=== PATIENT | female | born 1990 | race Caucasian/White ===

== ENCOUNTER → 2016-05-27 | Outpatient (CLI) | payer OTHER ==
[2016-05-27 10:37] LABS: CH 30.8; CHCM 33.5; HCT 46.7 % (34.0-46.0); HDW 2.26; HGB 15.1 gm/dL (11.4-16.0); MCH 29.8 pg (25.0-35.0); MCHC 32.3 g/dL (31.0-37.0); MCV 92.2 fL (80.0-100.0); RBC 5.06 m/uL (3.80-5.40); RDW 12.2 % (11.5-15.5); WBC 6.9 k/uL (3.8-10.6)
[2016-05-27 15:34] LABS: ALT 62 U/L (9-52); AST 36 U/L (14-36); Alkaline Phosphatase 101 U/L (38-126); Anion Gap 11 mmol/L; Blood Urea Nitrogen 14 mg/dL (7-17); C Reactive Protein <5.0 mg/L (<10.0); Calcium 9.5 mg/dL (8.4-10.2); Carbon Dioxide 25 mmol/L (22-30); Chloride 107 mmol/L (98-107); Cholesterol 257 mg/dL (<200); Glucose 93 mg/dL (74-99); HDL Cholesterol 52 mg/dL (40-60); Non-African American GFR(MDRD) >60 (>60 ml/min/1.73 sqM); Potassium 4.5 mmol/L (3.5-5.1); Sodium 143 mmol/L (137-145); Total Bilirubin 0.5 mg/dL (0.2-1.3); Total Protein 7.3 g/dL (6.3-8.2); Triglycerides 154 mg/dL (<150)
[2016-05-28 03:27] LABS: EBV - VCA (IgG) 42.5 U/mL (<18.0); EBV - VCA IgM 30.9 U/mL (<36.0)
[2016-05-28 08:09] LABS: HIV-1/HIV-2 Ab Screen NONREAC (NON REAC)
[2016-05-29 05:47] LABS: Methylmalonic Acid <0.10 umol/L (<0.40)
[2016-06-01 16:22] LABS: Mis test requested (Blood) Narcolepsy
== END | disposition home or self-care (01) ==
LOC: LABWHC1 09:51
PROVIDERS: ATTEND Family Medicine
DX: K75.81 Nonalcoholic steatohepatitis (NASH) (principal); R53.83 Other fatigue
CPT/HCPCS: 36415; 80053; 80061; 81383; 83921; 84439; 84481; 85027; 86038; 86140; 86665; 87389

== ENCOUNTER 2017-05-08 16:09 | Emergency (ER) | payer BC, OTHER ==
[2017-05-08 16:55] LABS: Glucose,Whole Blood 104 mg/dL (75-99)
--- NOTE | 2017-05-08 17:05 | ED ---
General Adult HPI - General Chief complaint: Recheck/Abnormal Lab/Rx Stated complaint: Shaky/Nausea Time Seen by Provider: 05/08/17 16:47 Source: patient Mode of arrival: ambulatory Limitations: no limitations - History of Present Illness Initial comments: This is a 26-year-old female who presents with a chief complaint of "hypoglycemic attacks" which have been occurring for 2 weeks. She describes this as episodes of feeling light-headed and her hands become "shakey." She also states several associated symptoms including fatigue, headache and dizzy. Her serum glucose was 104 today. She denies syncope. She has no known history of diabetes or thyroid disorder. The patient has an appointment scheduled with her primary care provider next week, but felt that she should be evaluated sooner because she is experiencing an increased frequency of theses episodes. - Related Data Home Medications Medication Instructions Recorded Confirmed Omeprazole 20 mg PO DAILY 05/08/17 05/08/17 Qvar Unknown Dose 1 puff INHALATION RT-BID 05/08/17 05/08/17 Allergies Allergy/AdvReac Type Severity Reaction Status Date / Time amoxicillin Allergy Unknown Verified 05/08/17 16:31 Review of Systems ROS Statement: Those systems with pertinent positive or pertinent negative responses have been documented in the HPI. ROS Other: All systems not noted in ROS Statement are negative. Past Medical History Past Medical History: Asthma History of Any Multi-Drug Resistant Organisms: None Reported Past Surgical History: Cholecystectomy Past Psychological History: No Psychological Hx Reported Smoking Status: Never smoker Past Alcohol Use History: None Reported Past Drug Use History: None Reported General Exam Limitations: no limitations General appearance: alert, in no apparent distress Head exam: Present: atraumatic, normocephalic, normal inspection Eye exam: Present: normal appearance, PERRL, EOMI. Absent: scleral icterus, conjunctival injection, periorbital swelling Neck exam: Present: normal inspection, other. Absent: tenderness, meningismus, lymphadenopathy, thyromegaly Respiratory exam: Present: normal lung sounds bilaterally. Absent: respiratory distress, wheezes, rales, rhonchi, stridor Cardiovascular Exam: Present: regular rate, normal rhythm, normal heart sounds. Absent: systolic murmur, diastolic murmur, rubs, gallop, clicks Back exam: Present: normal inspection Neurological exam: Present: alert, oriented X3, CN II-XII intact Psychiatric exam: Present: normal affect, normal mood Skin exam: Present: warm, dry, intact, normal color. Absent: rash Course Vital Signs 05/08/17 16:13 Temperature 97 F L Pulse Rate 87 Respiratory 20 Rate Blood Pressure 144/75 O2 Sat by Pulse 100 Oximetry Medical Decision Making - Medical Decision Making 26-year-old female presented for suspected hypoglycemic events. She states that she gets shaky but has resolved with eating. Patient claims that she is dieting, currently on chemo diet. She states she started spotting 5 weeks ago just prior to her symptoms starting. I did explain that she may be having affects from her dieting. We discussed high-protein, small frequent meals rather than large meals. Patient will follow-up with her primary care physician or park recreation manager for glucose monitoring. - Lab Data Result diagrams: 05/08/17 17:08 05/08/17 17:08 Lab Results 05/08/17 05/08/17 05/08/17 Range/Units 16:26 17:08 17:08 WBC 9.2 (3.8-10.6) k/uL RBC 5.11 (3.80-5.40) m/uL Hgb 15.4 (11.4-16.0) gm/dL Hct 45.9 (34.0-46.0) % MCV 89.9 (80.0-100.0) fL MCH 30.2 (25.0-35.0) pg MCHC 33.5 (31.0-37.0) g/dL RDW 12.1 (11.5-15.5) % Plt Count 347 (150-450) k/uL Neutrophils % 68 % Lymphocytes % 21 % Monocytes % 6 % Eosinophils % 4 % Basophils % 1 % Neutrophils # 6.2 (1.3-7.7) k/uL Lymphocytes # 1.9 (1.0-4.8) k/uL Monocytes # 0.5 (0-1.0) k/uL Eosinophils # 0.3 (0-0.7) k/uL Basophils # 0.1 (0-0.2) k/uL Sodium 144 (137-145) mmol/L Potassium 4.0 (3.5-5.1) mmol/L Chloride 106 (98-107) mmol/L Carbon Dioxide 27 (22-30) mmol/L Anion Gap 11 mmol/L BUN 18 H (7-17) mg/dL Creatinine 0.96 (0.52-1.04) mg/dL Est GFR (MDRD) Af Amer >60 (>60 ml/min/1.73 sqM) Est GFR (MDRD) Non-Af >60 (>60 ml/min/1.73 sqM) Glucose 107 H (74-99) mg/dL POC Glucose (mg/dL) 104 H (75-99) mg/dL POC Glu [employer] Supervisor ID Liliam Crawford Calcium 10.2 (8.4-10.2) mg/dL Total Bilirubin 0.2 (0.2-1.3) mg/dL AST 26 (14-36) U/L ALT 50 (9-52) U/L Alkaline Phosphatase 103 (38-126) U/L Total Protein 7.6 (6.3-8.2) g/dL Albumin 4.5 (3.5-5.0) g/dL TSH 2.160 (0.465-4.680) mIU/L Disposition Clinical Impression: Episode of shaking, Dieting, Labile blood glucose Disposition: HOME SELF-CARE Condition: Stable Instructions: Non-diabetic Hypoglycemia (ED) Additional Instructions: Please return to the Emergency Department if symptoms worsen or any other concerns. Referrals: None,Stated [Primary Care Provider] - 1-2 days Time of Disposition: 18:17
[2017-05-08 17:19] LABS: Basophils # (A) 0.1 k/uL (0-0.2); Basophils % (A) 1 %; Eosinophils # (A) 0.3 k/uL (0-0.7); Eosinophils % (A) 4 %; HCT 45.9 % (34.0-46.0); HGB 15.4 gm/dL (11.4-16.0); Lymphocytes # (A) 1.9 k/uL (1.0-4.8); Lymphocytes % (A) 21 %; MCH 30.2 pg (25.0-35.0); MCHC 33.5 g/dL (31.0-37.0); MCV 89.9 fL (80.0-100.0); Mean Platelet Volume 6.3; Monocytes # (A) 0.5 k/uL (0-1.0); Monocytes % (A) 6 %; Neutrophils # (A) 6.2 k/uL (1.3-7.7); Neutrophils % (A) 68 %; Platelet Count 347 k/uL (150-450); RBC 5.11 m/uL (3.80-5.40); RDW 12.1 % (11.5-15.5); WBC 9.2 k/uL (3.8-10.6)
[2017-05-08 17:29] LABS: ALT 50 U/L (9-52); AST 26 U/L (14-36); Albumin 4.5 g/dL (3.5-5.0); Alkaline Phosphatase 103 U/L (38-126); Anion Gap 11 mmol/L; Blood Urea Nitrogen 18 mg/dL (7-17); Calcium 10.2 mg/dL (8.4-10.2); Carbon Dioxide 27 mmol/L (22-30); Chloride 106 mmol/L (98-107); Glucose 107 mg/dL (74-99); Sodium 144 mmol/L (137-145); Total Bilirubin 0.2 mg/dL (0.2-1.3); Total Protein 7.6 g/dL (6.3-8.2)
[2017-05-08 18:29] VITALS: BP 120/60; PULSE 91; RESP 18; TEMP 98.7
== END 2017-05-08 18:27 | disposition home or self-care (01) ==
LOC: EC 16:09
DX: R25.9 Unspecified abnormal involuntary movements (principal); R63.8 Other symptoms and signs concerning food and fluid intake; R73.09 Other abnormal glucose; R51 Headache; R42 Dizziness and giddiness; R53.83 Other fatigue; J45.909 Unspecified asthma, uncomplicated; Z79.899 Other long term (current) drug therapy; Z88.0 Allergy status to penicillin
CPT/HCPCS: 36415; 80053; 84443; 85025; 99284

== ENCOUNTER 2018-02-24 08:22 | Emergency (ER) | payer OTHER ==
[2018-02-24 08:30] VITALS: RESP 18; TEMP 98.2
[2018-02-24] MEDS ORDERED: ACETAMINOPHEN TAB 500 MG TAB PO STA (09:02)
[2018-02-24] MEDS ORDERED: SODIUM CHLORIDE 0.9% 1,000 ML IV STA (09:02)
[2018-02-24] MEDS ORDERED: KETOROLAC 30 MG/ML 1 ML VIAL IVP STA (09:02)
[2018-02-24] MEDS ORDERED: ONDANSETRON 4 MG/2 ML VIAL IVP STA (09:02)
[2018-02-24] MEDS ORDERED: ORPHENADRINE 30 MG/ML 2 ML VIAL IVP STA (09:02)
--- NOTE | 2018-02-24 09:17 | ED ---
Headache HPI - General Chief Complaint: Headache Stated Complaint: headache Time Seen by Provider: 02/24/18 08:31 Source: RN notes reviewed, old records reviewed Mode of arrival: ambulatory - History of Present Illness Initial Comments: Patient is a 27-year-old female with a history of migraine disorder presents emergency department today with 4 days of headache. She reports not had a headache that she does not past 4 years. She has history of auras with her migraine. She states she's been taking decongestant medication and alternating Motrin Tylenol persist with a headache. She states that it was worse the past 3 days ago she was working nights. - Related Data Home Medications Medication Instructions Recorded Confirmed Omeprazole 20 mg PO DAILY 05/08/17 02/24/18 Aspirin/Acetaminophen/Caffeine 1 tab PO DAILY 02/24/18 02/24/18 [Excedrin Migraine Caplet] Guaifen/Phenyleph/Acetaminophn 2 tab PO DAILY 02/24/18 02/24/18 [Tylenol Sinus Severe Caplet] Ibuprofen [Motrin Ib] 400 mg PO DAILY 02/24/18 02/24/18 Previous Rx's Medication Instructions Recorded Butalbital/Aspirin/Caffeine 1 cap PO Q4H PRN 3 Days #18 cap 02/24/18 [Fiorinal 50-325-40 MG] Allergies Allergy/AdvReac Type Severity Reaction Status Date / Time amoxicillin Allergy Unknown Verified 02/24/18 08:42 Review of Systems ROS Statement: Those systems with pertinent positive or pertinent negative responses have been documented in the HPI. ROS Other: All systems not noted in ROS Statement are negative. Past Medical History Past Medical History: Asthma History of Any Multi-Drug Resistant Organisms: None Reported Past Surgical History: Cholecystectomy Past Psychological History: No Psychological Hx Reported Smoking Status: Never smoker Past Alcohol Use History: None Reported Past Drug Use History: None Reported General Exam General appearance: alert, in no apparent distress Head exam: Present: atraumatic, normocephalic, normal inspection Eye exam: Present: normal appearance, PERRL, EOMI. Absent: scleral icterus, conjunctival injection, periorbital swelling ENT exam: Present: normal exam, mucous membranes moist Neck exam: Present: normal inspection. Absent: tenderness, meningismus, lymphadenopathy Respiratory exam: Present: normal lung sounds bilaterally. Absent: respiratory distress, wheezes, rales, rhonchi, stridor Cardiovascular Exam: Present: regular rate, normal rhythm, normal heart sounds. Absent: systolic murmur, diastolic murmur, rubs, gallop, clicks GI/Abdominal exam: Present: soft, normal bowel sounds. Absent: distended, tenderness, guarding, rebound, rigid Extremities exam: Present: normal inspection, full ROM, normal capillary refill. Absent: tenderness, pedal edema, joint swelling, calf tenderness Back exam: Present: normal inspection Neurological exam: Present: alert, oriented X3, CN II-XII intact Psychiatric exam: Present: normal affect, normal mood Skin exam: Present: warm, dry, intact, normal color. Absent: rash Course Vital Signs 02/24/18 08:24 Temperature 98.2 F Pulse Rate 92 Respiratory 18 Rate Blood Pressure 144/84 Medical Decision Making - Medical Decision Making 27-year-old female presents emergency room 4 days of migraine-like headache. She was given migraine cocktail. Patient reports that her headaches improved, she rates a 4 out of 10. Patient is any peaches no neurological deficits. Otherwise appears well. Discussed inpatient dose of Fioricet. We'll discharge her with close follow-up with primary care physician. Discussed the medication change or worsen she can return to emergency department. Patient agrees to treatment plan at this time. Disposition Clinical Impression: Migraine Disposition: HOME SELF-CARE Condition: Good Instructions: Acute Headache (ED) Additional Instructions: Patient advised to follow-up with primary care physician. Take medication as prescribed. Rest, remain hydrated. Prescriptions: Butalbital/Aspirin/Caffeine [Fiorinal 50-325-40 MG] 1 cap PO Q4H PRN 3 Days #18 cap PRN Reason: Migraine Headache Is patient prescribed a controlled substance at d/c from ED?: No Referrals: Kiera Mtz MD [Primary Care Provider] - 1-2 days Time of Disposition: 11:24
[2018-02-24] MEDS ORDERED: BUTA/APAP/CAF/COD 50-325-40-30 CAP PO STA (11:13)
[2018-02-24 11:48] VITALS: BP 108/53; PULSE 71
== END 2018-02-24 11:51 | disposition home or self-care (01) ==
LOC: EC 08:22
DX: G43.909 Migraine, unspecified, not intractable, without status migrainosus (principal); Z90.49 Acquired absence of other specified parts of digestive tract; Z79.1 Long term (current) use of non-steroidal anti-inflammatories (NSAID); Z79.82 Long term (current) use of aspirin; Z79.899 Other long term (current) drug therapy; Z88.0 Allergy status to penicillin
CPT/HCPCS: 96361; 96374; 96375; 99284

== ENCOUNTER 2018-03-03 21:58 | Emergency (ER) | payer OTHER ==
[2018-03-03 22:11] VITALS: RESP 18; TEMP 98.6
[2018-03-03] MEDS ORDERED: SODIUM CHLORIDE 0.9% 1,000 ML IV STA (22:38)
[2018-03-03 23:20] LABS: Basophils % (A) 1 %; Eosinophils # (A) 0.2 k/uL (0-0.7); Eosinophils % (A) 3 %; HGB 14.3 gm/dL (11.4-16.0); Lymphocytes # (A) 1.1 k/uL (1.0-4.8); Lymphocytes % (A) 21 %; MCH 30.3 pg (25.0-35.0); MCHC 33.3 g/dL (31.0-37.0); Mean Platelet Volume 6.6; Monocytes # (A) 0.6 k/uL (0-1.0); Monocytes % (A) 10 %; Neutrophils # (A) 3.4 k/uL (1.3-7.7); Neutrophils % (A) 63 %; Platelet Count 244 k/uL (150-450); RBC 4.72 m/uL (3.80-5.40); RDW 12.5 % (11.5-15.5); WBC 5.5 k/uL (3.8-10.6)
[2018-03-03 23:33] LABS: ALT 74 U/L (9-52); AST 38 U/L (14-36); Albumin 4.1 g/dL (3.5-5.0); Alkaline Phosphatase 125 U/L (38-126); Anion Gap 7 mmol/L; Blood Urea Nitrogen 9 mg/dL (7-17); Calcium 9.3 mg/dL (8.4-10.2); Carbon Dioxide 27 mmol/L (22-30); Chloride 106 mmol/L (98-107); Glucose 114 mg/dL (74-99); Lipase 77 U/L (23-300); Potassium 3.6 mmol/L (3.5-5.1); Sodium 140 mmol/L (137-145); Total Bilirubin 0.4 mg/dL (0.2-1.3)
[2018-03-03 23:42] LABS: Appearance,Urine Turbid (Clear); Bilirubin,Urine Negative (Negative); Blood,Urine Negative (Negative); Color,Urine Yellow; Glucose,Urine (UA) Negative (Negative); Ketones,Urine 1+ (Negative); Leukocyte Esterase,Urine Moderate (Negative); Mucus,Urine Many /hpf; Nitrite,Urine Negative (Negative); PH, Urine 5.5 (5.0-8.0); Protein,Urine Trace (Negative); RBC,Urine 2 /hpf (0-5); Specific Gravity,Urine 1.022 (1.001-1.035); Squamous Epithelial Cell,Urine 33 /hpf (0-4)
--- NOTE | 2018-03-03 23:51 | ED ---
General Adult HPI - General Chief complaint: Urogenital Stated complaint: Cold, Back pain Source: patient, RN notes reviewed, old records reviewed Mode of arrival: ambulatory Limitations: no limitations - History of Present Illness Initial comments: 27-year-old female patient of present past medical history presents to ED with approximately 5 days of sore throat, nonproductive cough, sinus congestion. In 3 days of dysuria, suprapubic pressure. Patient denies any other symptoms. Patient denies chest pain, shortness of breath, nausea vomiting diarrhea, fever chills, headache, changes in vision. Systemic: Pt denies fatigue, myalgia, fever/chills, rash. Pt denies weakness, night sweats, weight loss. Neuro: Pt denies headache, visual disturbances, syncope or pre-syncope. HEENT: Pt denies ocular discharge or irritation, otalgia, rhinorrhea, pharyngitis or notable lymphadenopathy. Cardiopulmonary: Pt denies chest pain, SOB, heart palpitations, dyspnea on exertion. Abdominal/GI: Pt denies n/v/d. : Pt Denies new onset urinary or bowel incontinence. MSK: Pt denies myalgia, loss of strength or function in extremities. Neuro: Pt denies new onset weakness, paresthesias. - Related Data Home Medications Medication Instructions Recorded Confirmed Omeprazole 20 mg PO DAILY 05/08/17 03/03/18 Cholecalciferol [Vitamin D3] 1,000 unit PO DAILY 03/03/18 03/03/18 Ethel-3 Fatty Acids/Fish Oil [Fish 1 cap PO DAILY 03/03/18 03/03/18 Oil 1,000 mg Softgel] Previous Rx's Medication Instructions Recorded Nitrofurantoin Macrocrystal 100 mg PO Q12HR 5 Days #10 cap 03/04/18 [Macrodantin] Allergies Allergy/AdvReac Type Severity Reaction Status Date / Time amoxicillin Allergy Unknown Verified 03/03/18 22:56 Review of Systems ROS Statement: Those systems with pertinent positive or pertinent negative responses have been documented in the HPI. ROS Other: All systems not noted in ROS Statement are negative. Past Medical History Past Medical History: Asthma History of Any Multi-Drug Resistant Organisms: None Reported Past Surgical History: Cholecystectomy Past Psychological History: No Psychological Hx Reported Smoking Status: Never smoker Past Alcohol Use History: None Reported Past Drug Use History: None Reported General Exam - General Exam Comments Initial Comments: Constitutional: NAD, AOX3, Pt has pleasant affect. HEENT: NC/AT, trachea midline, neck supple, no lymphadenopathy. Posterior pharynx non erythematous, without exudates. External ears appear normal, without discharge. Mucous membranes moist. Eyes PERRLA, EOM intact. There is no scleral icterus. No pallor noted. Cardiopulmonary: RRR, no murmurs, rubs or gallops, no JVD noted. Lungs CTAB in anterior and posterior kahn. No peripheral edema. Abdominal exam: Abdomen soft and non-distended. Abdomen mildly ttp in suprapubic region. Non tender to palpation in all other quadrants. No ecchymosis , no rash. Bowel sounds active in LLQ. No hepatosplenomegaly. Neuro: CN II-XII grossly intact. No nuchal rigidity. MSK: No posterior calf tenderness bilaterally, homans sign negative bilaterally. Posterior tibialis and radial pulse +2 bilaterally. Limitations: no limitations Course Vital Signs 03/03/18 22:06 Temperature 98.6 F Pulse Rate 94 Respiratory 18 Rate Blood Pressure 136/80 O2 Sat by Pulse 99 Oximetry Medical Decision Making - Medical Decision Making [id number] female patient with past medical history of present ED with 5 days of cough, congestion, sore throat and 3 days of dysuria, suprapubic pressure. Patient investigations including CBC, CMP, lactic acid, lipase were not impressive. Patient has a history of nonalcoholic fatty liver, LFTs mildly elevated today. UA displayed UTI. Plain films of the chest and KUB not displaying acute pathology. Patient to be treated for urinary tract infection. Patient to follow primary care physician 1-2 days. Patient return to ED if any new signs or symptoms develop including nausea, diarrhea, chest pain shortness of breath, abdominal pain, fever/chills, or any other new symptoms. Case discussed with Dr. Ricks. - Lab Data Result diagrams: 03/03/18 23:00 03/03/18 23:00 Lab Results 03/03/18 03/03/18 03/03/18 Range/Units 23:00 23:00 23:00 WBC 5.5 (3.8-10.6) k/uL RBC 4.72 (3.80-5.40) m/uL Hgb 14.3 (11.4-16.0) gm/dL Hct 43.0 (34.0-46.0) % MCV 91.0 (80.0-100.0) fL MCH 30.3 (25.0-35.0) pg MCHC 33.3 (31.0-37.0) g/dL RDW 12.5 (11.5-15.5) % Plt Count 244 (150-450) k/uL Neutrophils % 63 % Lymphocytes % 21 % Monocytes % 10 % Eosinophils % 3 % Basophils % 1 % Neutrophils # 3.4 (1.3-7.7) k/uL Lymphocytes # 1.1 (1.0-4.8) k/uL Monocytes # 0.6 (0-1.0) k/uL Eosinophils # 0.2 (0-0.7) k/uL Basophils # 0.0 (0-0.2) k/uL Sodium 140 (137-145) mmol/L Potassium 3.6 (3.5-5.1) mmol/L Chloride 106 (98-107) mmol/L Carbon Dioxide 27 (22-30) mmol/L Anion Gap 7 mmol/L BUN 9 (7-17) mg/dL Creatinine 0.78 (0.52-1.04) mg/dL Est GFR (CKD-EPI)AfAm >90 (>60 ml/min/1.73 sqM) Est GFR (CKD-EPI)NonAf >90 (>60 ml/min/1.73 sqM) Glucose 114 H (74-99) mg/dL Plasma Lactic Acid Rafael (0.7-2.0) mmol/L Calcium 9.3 (8.4-10.2) mg/dL Total Bilirubin 0.4 (0.2-1.3) mg/dL AST 38 H (14-36) U/L ALT 74 H (9-52) U/L Alkaline Phosphatase 125 (38-126) U/L Total Protein 7.0 (6.3-8.2) g/dL Albumin 4.1 (3.5-5.0) g/dL Lipase 77 (23-300) U/L Urine Color Urine Appearance (Clear) Urine pH (5.0-8.0) Ur Specific [place] (1.001-1.035) Urine Protein (Negative) Urine Glucose (UA) (Negative) Urine Ketones (Negative) Urine Blood (Negative) Urine Nitrite (Negative) Urine Bilirubin (Negative) Urine Urobilinogen (<2.0) mg/dL Ur Leukocyte Esterase (Negative) Urine RBC (0-5) /hpf Urine WBC (0-5) /hpf Ur Squamous Epith Cells (0-4) /hpf Urine Mucus (None) /hpf Urine HCG, Qual Not Detected (Not Detectd) 03/03/18 03/03/18 Range/Units 23:00 23:00 WBC (3.8-10.6) k/uL RBC (3.80-5.40) m/uL Hgb (11.4-16.0) gm/dL Hct (34.0-46.0) % MCV (80.0-100.0) fL MCH (25.0-35.0) pg MCHC (31.0-37.0) g/dL RDW (11.5-15.5) % Plt Count (150-450) k/uL Neutrophils % % Lymphocytes % % Monocytes % % Eosinophils % % Basophils % % Neutrophils # (1.3-7.7) k/uL Lymphocytes # (1.0-4.8) k/uL Monocytes # (0-1.0) k/uL Eosinophils # (0-0.7) k/uL Basophils # (0-0.2) k/uL Sodium (137-145) mmol/L Potassium (3.5-5.1) mmol/L Chloride (98-107) mmol/L Carbon Dioxide (22-30) mmol/L Anion Gap mmol/L BUN (7-17) mg/dL Creatinine (0.52-1.04) mg/dL Est GFR (CKD-EPI)AfAm (>60 ml/min/1.73 sqM) Est GFR (CKD-EPI)NonAf (>60 ml/min/1.73 sqM) Glucose (74-99) mg/dL Plasma Lactic Acid Rafael 0.8 (0.7-2.0) mmol/L Calcium (8.4-10.2) mg/dL Total Bilirubin (0.2-1.3) mg/dL AST (14-36) U/L ALT (9-52) U/L Alkaline Phosphatase (38-126) U/L Total Protein (6.3-8.2) g/dL Albumin (3.5-5.0) g/dL Lipase (23-300) U/L Urine Color Yellow Urine Appearance Turbid H (Clear) Urine pH 5.5 (5.0-8.0) Ur Specific [place] 1.022 (1.001-1.035) Urine Protein Trace H (Negative) Urine Glucose (UA) Negative (Negative) Urine Ketones 1+ H (Negative) Urine Blood Negative (Negative) Urine Nitrite Negative (Negative) Urine Bilirubin Negative (Negative) Urine Urobilinogen 2.0 (<2.0) mg/dL Ur Leukocyte Esterase Moderate H (Negative) Urine RBC 2 (0-5) /hpf Urine WBC 21 H (0-5) /hpf Ur Squamous Epith Cells 33 H (0-4) /hpf Urine Mucus Many H (None) /hpf Urine HCG, Qual (Not Detectd) Disposition Clinical Impression: Urinary tract infection Disposition: HOME SELF-CARE Condition: Good Instructions: Urinary Tract Infection in Women (ED) Additional Instructions: Patient to adhere to previously discussed treatment plan and will take medication(s) as directed. Patient to follow up with PCP in 1-2 days. Patient to return to ED if symptoms do not improve. Prescriptions: Nitrofurantoin Macrocrystal [Macrodantin] 100 mg PO Q12HR 5 Days #10 cap Is patient prescribed a controlled substance at d/c from ED?: No Referrals: Kiera Mtz MD [Primary Care Provider] - 1-2 days Time of Disposition: 00:25
--- NOTE | 2018-03-04 00:13 | XR ---
EXAMINATION TYPE: XR KUB DATE OF EXAM: 03/03/2018 COMPARISON: NONE HISTORY: Abdominal pain TECHNIQUE: 2 views upright FINDINGS: There is no sign of intestinal obstruction or pneumoperitoneum. Fecal pattern is normal. Th ere are clips from cholecystectomy. Costophrenic angles are clear. There are no pathologic calcificat ions over the kidneys. IMPRESSION: Nonacute abdomen.
--- NOTE | 2018-03-04 00:15 | XR ---
EXAMINATION TYPE: XR chest 2V DATE OF EXAM: 03/03/2018 COMPARISON: NONE HISTORY: Cold and flu symptoms. Chest pain. TECHNIQUE: Frontal and lateral views of the chest are obtained. FINDINGS: Heart and mediastinum are normal. Lungs are clear. Diaphragm is normal. Bony thorax appear s normal. IMPRESSION: Normal chest.
[2018-03-04 00:51] VITALS: BP 117/80; PULSE 91
== END 2018-03-04 00:49 | disposition home or self-care (01) ==
LOC: EC 21:58
DX: N39.0 Urinary tract infection, site not specified (principal); R05 Cough; R09.89 Other specified symptoms and signs involving the circulatory and respiratory systems; R94.5 Abnormal results of liver function studies; Z79.899 Other long term (current) drug therapy; Z88.0 Allergy status to penicillin; Z90.49 Acquired absence of other specified parts of digestive tract
CPT/HCPCS: 36415; 71046; 74018; 80053; 81001; 81025; 83605; 83690; 85025; 87086; 96360; 99284

== ENCOUNTER 2018-06-23 12:22 | Emergency (ER) | payer OTHER ==
[2018-06-23] MEDS ORDERED: SODIUM CHLORIDE 0.9% 1,000 ML IV STA (13:40)
--- NOTE | 2018-06-23 13:47 | ED ---
Neuro HPI - General Chief Complaint: Headache Stated Complaint: Left sided numbness Time Seen by Provider: 06/23/18 13:01 Source: patient, RN notes reviewed, old records reviewed Mode of arrival: ambulatory Limitations: no limitations - History of Present Illness Is the patient presenting with stroke symptoms?: No Initial Comments: This is a 27-year-old female the ER, new onset [place] HFR. Patient recently started on new medication. Coming with paresthesia headache today. No other complaints, this point symptoms are resolved. Patient denies any neurological deficit or complaint. No history of blood clots for patient. No other complaints currently. Headache is resolved. She has resolved Location: left arm History of same: No Place: work Severity: mild Quality: tingling Improves With: time Worsens With: none On Anticoagulants: No Context: gradual onset Associated Symptoms: headaches, other (Paresthesia) Treatments Prior to Arrival: none - Related Data Home Medications: Home Medications Medication Instructions Recorded Confirmed Omeprazole 20 mg PO HS 05/08/17 06/23/18 Randall-3 Fatty Acids/Fish Oil [Fish 1 cap PO HS 03/03/18 06/23/18 Oil 1,000 mg Softgel] Albuterol Sulfate [Proair Hfa] 1 - 2 puff INHALATION RT-Q6H PRN 06/23/18 06/23/18 Choline Bitartrate [Choline Sr] 300 mg PO HS 06/23/18 06/23/18 Cider Vinegar [Apple Cider Vinegar] 300 mg PO HS 06/23/18 06/23/18 Loratadine [Claritin] 10 mg PO HS 06/23/18 06/23/18 l-Mefol/A-Cyst/Meb12/Algal Oil 1 tab PO HS 06/23/18 06/23/18 [Cerefolin Nac Caplet] Allergies/Adverse Reactions: Allergies Allergy/AdvReac Type Severity Reaction Status Date / Time amoxicillin Allergy Unknown Verified 06/23/18 13:49 Review of Systems ROS Statement: Those systems with pertinent positive or pertinent negative responses have been documented in the HPI. ROS Other: All systems not noted in ROS Statement are negative. General Exam Limitations: no limitations General appearance: alert, in no apparent distress Head exam: Present: atraumatic, normocephalic, normal inspection Eye exam: Present: normal appearance, PERRL, EOMI. Absent: scleral icterus, conjunctival injection, periorbital swelling ENT exam: Present: normal exam, mucous membranes moist Neck exam: Present: normal inspection. Absent: tenderness, meningismus, lymphadenopathy Respiratory exam: Present: normal lung sounds bilaterally. Absent: respiratory distress, wheezes, rales, rhonchi, stridor Cardiovascular Exam: Present: regular rate, normal rhythm, normal heart sounds. Absent: systolic murmur, diastolic murmur, rubs, gallop, clicks GI/Abdominal exam: Present: soft, normal bowel sounds. Absent: distended, te nderness, guarding, rebound, rigid Extremities exam: Present: normal inspection, full ROM, normal capillary refill. Absent: tenderness, pedal edema, joint swelling, calf tenderness Back exam: Present: normal inspection Neurological exam: Present: alert, oriented X3, CN II-XII intact Psychiatric exam: Present: normal affect, normal mood Skin exam: Present: warm, dry, intact, normal color. Absent: rash Stroke MDM - Lab Data Result diagrams: 06/23/18 13:40 06/23/18 13:40 Lab Results 06/23/18 06/23/18 06/23/18 Range/Units 13:40 13:40 13:40 WBC 12.4 H (3.8-10.6) k/uL RBC 5.10 (3.80-5.40) m/uL Hgb 14.9 (11.4-16.0) gm/dL Hct 45.3 (34.0-46.0) % MCV 88.9 (80.0-100.0) fL MCH 29.3 (25.0-35.0) pg MCHC 32.9 (31.0-37.0) g/dL RDW 12.7 (11.5-15.5) % Plt Count 345 (150-450) k/uL Neutrophils % 73 % Lymphocytes % 17 % Monocytes % 4 % Eosinophils % 4 % Basophils % 1 % Neutrophils # 9.1 H (1.3-7.7) k/uL Lymphocytes # 2.1 (1.0-4.8) k/uL Monocytes # 0.5 (0-1.0) k/uL Eosinophils # 0.5 (0-0.7) k/uL Basophils # 0.1 (0-0.2) k/uL PT 11.3 (9.0-12.0) sec INR 1.1 (<1.2) APTT 27.4 (22.0-30.0) sec Sodium 140 (137-145) mmol/L Potassium 4.4 (3.5-5.1) mmol/L Chloride 105 (98-107) mmol/L Carbon Dioxide 25 (22-30) mmol/L Anion Gap 10 mmol/L BUN 15 (7-17) mg/dL Creatinine 0.86 (0.52-1.04) mg/dL Est GFR (CKD-EPI)AfAm >90 (>60 ml/min/1.73 sqM) Est GFR (CKD-EPI)NonAf >90 (>60 ml/min/1.73 sqM) Glucose 89 (74-99) mg/dL Calcium 10.4 H (8.4-10.2) mg/dL Total Bilirubin 0.4 (0.2-1.3) mg/dL AST 25 (14-36) U/L ALT 41 (9-52) U/L Alkaline Phosphatase 113 (38-126) U/L Troponin I (0.000-0.034) ng/mL Total Protein 7.7 (6.3-8.2) g/dL Albumin 4.6 (3.5-5.0) g/dL 06/23/18 Range/Units 13:40 WBC (3.8-10.6) k/uL RBC (3.80-5.40) m/uL Hgb (11.4-16.0) gm/dL Hct (34.0-46.0) % MCV (80.0-100.0) fL MCH (25.0-35.0) pg MCHC (31.0-37.0) g/dL RDW (11.5-15.5) % Plt Count (150-450) k/uL Neutrophils % % Lymphocytes % % Monocytes % % Eosinophils % % Basophils % % Neutrophils # (1.3-7.7) k/uL Lymphocytes # (1.0-4.8) k/uL Monocytes # (0-1.0) k/uL Eosinophils # (0-0.7) k/uL Basophils # (0-0.2) k/uL PT (9.0-12.0) sec INR (<1.2) APTT (22.0-30.0) sec Sodium (137-145) mmol/L Potassium (3.5-5.1) mmol/L Chloride (98-107) mmol/L Carbon Dioxide (22-30) mmol/L Anion Gap mmol/L BUN (7-17) mg/dL Creatinine (0.52-1.04) mg/dL Est GFR (CKD-EPI)AfAm (>60 ml/min/1.73 sqM) Est GFR (CKD-EPI)NonAf (>60 ml/min/1.73 sqM) Glucose (74-99) mg/dL Calcium (8.4-10.2) mg/dL Total Bilirubin (0.2-1.3) mg/dL AST (14-36) U/L ALT (9-52) U/L Alkaline Phosphatase (38-126) U/L Troponin I <0.012 (0.000-0.034) ng/mL Total Protein (6.3-8.2) g/dL Albumin (3.5-5.0) g/dL - NIH Stroke Scale 1a. Level of Consciousness: (0) alert 1b. LOC Questions: (0) answers correctly 1c. LOC Commands: (0) performs tasks correctly 2. Best Gaze: (0) normal 3. Visual: (0) no visual loss 4. Facial Palsy: (0) normal symmetrical movement 5a. Motor Arm Left: (0) no drift 5b. Motor Arm Right: (0) no drift 6a. Motor Leg Left: (0) no drift 6b. Motor Leg Right: (0) no drift 7. Limb Ataxia: (0) absent 8. Sensory: (0) normal 9. Best Language: (0) no aphasia 10. Dysarthria: (0) normal 11. Extinction/Inattention: (0) no abnormality - Medical Decision Making 27 female the ER for evaluation, patient presents with paresthesias and headache. History of MH GFR with new diagnosis, started on new Rosas therapy, otherwise no acute symptoms. Patient can be discharged home - Radiology Data Radiology results: report reviewed (CT brain CTA had not negative for acute disease), image reviewed - EKG Data -: EKG Interpreted by Me (EKG shows sinus rhythm rate of 79, IN 164, QRS 80, QTC 428) Past Medical History Past Medical History: Asthma Additional Past Medical History / Comment(s): Migraines History of Any Multi-Drug Resistant Organisms: None Reported Past Surgical History: Cholecystectomy Past Psychological History: No Psychological Hx Reported Smoking Status: Never smoker Past Alcohol Use History: None Reported Past Drug Use History: None Reported Course Vital Signs 06/23/18 12:47 Temperature 98.5 F Pulse Rate 87 Respiratory 20 Rate Blood Pressure 136/78 O2 Sat by Pulse 98 Oximetry - Reevaluation(s) Reevaluation #1: 06/23/18 15:27 Medical record reviewed Reevaluation #2: 06/23/18 15:27 Patient remains asymptomatic Disposition Clinical Impression: Headache, Paresthesia Disposition: HOME SELF-CARE Condition: Good Instructions (If sedation given, give patient instructions): Acute Headache (ED), Paresthesia (ED) Is patient prescribed a controlled substance at d/c from ED?: No Referrals: Kiera Mtz MD [Primary Care Provider] - 1-2 days
[2018-06-23 14:00] LABS: Basophils # (A) 0.1 k/uL (0-0.2); Basophils % (A) 1 %; Eosinophils # (A) 0.5 k/uL (0-0.7); Eosinophils % (A) 4 %; HCT 45.3 % (34.0-46.0); HGB 14.9 gm/dL (11.4-16.0); Lymphocytes # (A) 2.1 k/uL (1.0-4.8); Lymphocytes % (A) 17 %; MCH 29.3 pg (25.0-35.0); MCHC 32.9 g/dL (31.0-37.0); MCV 88.9 fL (80.0-100.0); Mean Platelet Volume 6.2; Monocytes # (A) 0.5 k/uL (0-1.0); Monocytes % (A) 4 %; Neutrophils # (A) 9.1 k/uL (1.3-7.7); Neutrophils % (A) 73 %; Platelet Count 345 k/uL (150-450); RDW 12.7 % (11.5-15.5); WBC 12.4 k/uL (3.8-10.6)
[2018-06-23 14:14] LABS: ALT 41 U/L (9-52); AST 25 U/L (14-36); Albumin 4.6 g/dL (3.5-5.0); Alkaline Phosphatase 113 U/L (38-126); Anion Gap 10 mmol/L; Blood Urea Nitrogen 15 mg/dL (7-17); Calcium 10.4 mg/dL (8.4-10.2); Carbon Dioxide 25 mmol/L (22-30); Chloride 105 mmol/L (98-107); Glucose 89 mg/dL (74-99); Potassium 4.4 mmol/L (3.5-5.1); Sodium 140 mmol/L (137-145); Total Bilirubin 0.4 mg/dL (0.2-1.3); Total Protein 7.7 g/dL (6.3-8.2)
[2018-06-23 14:19] LABS: INR 1.1 (<1.2); Partial Thromboplastin Time 27.4 sec (22.0-30.0); Prothrombin Time 11.3 sec (9.0-12.0)
--- NOTE | 2018-06-23 14:21 | CT ---
EXAMINATION TYPE: CT brain wo con for TPA DATE OF EXAM: 06/23/2018 COMPARISON: None HISTORY: Left sided weakness CT DLP: 949.[address] of the brain was performed. The ventricles, basal cisterns and sulci overlying the cerebral convexities demonstrate a normal appe arance. There is no evidence for intracranial hemorrhage or sulcal effacement. No mass effects are seen. Osseous calvarium is intact. If symptoms persist consider MRI as clinically warranted. IMPRESSION: 1. No acute intracranial process is seen at this time.
[2018-06-23] MEDS ORDERED: BUTALB/APAP/CAFF 50-325-40MG TAB PO STA (15:07)
--- NOTE | 2018-06-23 15:16 | CT ---
EXAMINATION TYPE: CT angio head neck DATE OF EXAM: 06/23/2018 COMPARISON: Correlation CT brain same day HISTORY: Left sided weakness TECHNIQUE: Contiguous axial scanning of the head and neck performed with IV Contrast, patient injecte d with 65 mL of Isovue 370. Coronal and sagittal MIP reconstructions performed. 3-D reconstructions g enerated on a dedicated independent workstation. CT DLP: 510.3 mGycm Automated exposure control for dose reduction was used. FINDINGS: Neck: There is some mixed soft tissue and fat density with upward convex margins in the anterior mediastinu m suggesting in a dynamic hyperplasia or residual thymus measuring 2.4 cm wide. Conventional branching anatomy. The left vertebral artery is slightly more dominant but both vessels are patent throughout their cour se. The right common and internal carotid arteries are patent. The left common and internal carotid arteries are patent. Bilateral palatine tonsillar hypertrophy and moderate mucosal thickening floors of the left greater t more right maxillary sinuses. Head: The vertebral, basilar, and internal carotid arteries are patent without significant stenosis or ren rial occlusion. The anterior circulation appears patent. Slightly ectatic course of the P1 segment left posterior cerebral artery with a prominent posterior c ommunicating artery on the left. No aneurysmal change is identified. The dural venous sinuses are patent. IMPRESSION: 1. NECK: WIDELY PATENT CAROTID AND VERTEBRAL ARTERIES OF THE NECK. 2. HEAD: NO LARGE VESSEL INTRACRANIAL ARTERIAL OCCLUSION, SIGNIFICANT STENOSIS, OR ANEURYSMAL CHANGE SEEN.
[2018-06-23 15:57] VITALS: BP 128/80; PULSE 74; RESP 16; TEMP 98.4
== END 2018-06-23 15:59 | disposition home or self-care (01) ==
LOC: EC 12:22
DX: R51 Headache (principal); R20.2 Paresthesia of skin; R20.0 Anesthesia of skin; J45.909 Unspecified asthma, uncomplicated; Z86.69 Personal history of other diseases of the nervous system and sense organs; Z79.899 Other long term (current) drug therapy; Z88.0 Allergy status to penicillin
CPT/HCPCS: 36415; 93005; 80053; 84484; 85025; 85610; 85730; 70496; 70450; 70498; 99284; 96360; 96361; Q9967

== ENCOUNTER → 2018-10-24 | Outpatient (CLI) | payer OTHER ==
[2018-10-24 09:55] LABS: HCT 43.9 % (34.0-46.0); HGB 14.3 gm/dL (11.4-16.0); MCH 29.9 pg (25.0-35.0); MCHC 32.6 g/dL (31.0-37.0); MCV 91.8 fL (80.0-100.0); Mean Platelet Volume 6.6; Platelet Count 320 k/uL (150-450); RBC 4.78 m/uL (3.80-5.40); RDW 12.6 % (11.5-15.5); WBC 8.5 k/uL (3.8-10.6)
[2018-10-24 17:11] LABS: African American GFR (CKD) 116.3 (60.0-200.0); Albumin 4.4 g/dL (3.80-4.90); Albumin/Globulin Ratio 2.1 (1.60-3.17); Anion Gap 8.1 mmol/L (4.00-12.00); BUN/Creat Ratio 17.5 Ratio (12.00-20.00); Calcium 9.4 mg/dL (8.7-10.3); Carbon Dioxide 25.9 mmol/L (21.6-31.8); Globulin 2.1 g/dL (1.6-3.3); Non-African American GFR(CKD) 100.3 (60.0-200.0); Potassium 4.4 mmol/L (3.5-5.5); Total Bilirubin 0.4 mg/dL (0.2-1.2); Total Protein 6.5 g/dL (6.2-8.2)
[2018-10-24 17:53] LABS: Cardiolipin Ab IgG Interp NEGATIVE (NEGATIVE); Cardiolipin Ab IgM Interp NEGATIVE (NEGATIVE); Cardiolipin IgA Antibody 0.6 U/mL; Cardiolipin IgM Antibody 2.2 U/mL
[2018-10-25 10:47] LABS: Protein C Antigen 109 % (72-160)
[2018-10-25 11:04] LABS: Anti-Thrombin III Antigen 110 % (80 - 120); Free Protein S Antigen 117 % (50 - 147)
[2018-10-25 11:18] LABS: APTT 48 Sec(s) (<43); APTT 1:1 Mix 43 Sec(s) (<43); DRVVT 1:1 Mix 42 Sec(s) (<44); Dilute Russell Viper Venom 46 Sec(s) (<44)
[2018-10-28 12:38] LABS: Anti-Thrombin III Activity 101 % (79-109)
== END | disposition home or self-care (01) ==
LOC: LABWHC1 08:33
PROVIDERS: ATTEND Family Medicine
DX: R07.9 Chest pain, unspecified (principal); R79.82 Elevated C-reactive protein (CRP)
CPT/HCPCS: 36415; 80053; 81241; 82103; 83090; 85027; 85300; 85301; 85302; 85306; 85307; 85415; 85613; 85730; 85732; 86147

== ENCOUNTER → 2020-05-15 | Outpatient (CLI) | payer OTHER ==
[2020-05-15 16:34] LABS: Estradiol 178.3 pg/mL; Luteinizing Hormone 23.3 mIU/mL
[2020-05-15 16:35] LABS: Follicle Stimulating Hormone 16.7 mIU/mL
== END | disposition home or self-care (01) ==
LOC: LABWHC1 08:51
PROVIDERS: ATTEND Family Medicine
DX: N92.6 Irregular menstruation, unspecified (principal)
CPT/HCPCS: 36415; 82533; 82627; 82670; 83001; 83002